=== PATIENT | male | born 1975 | race African-American/Black ===

== ENCOUNTER 2020-05-16 11:19 | Emergency (ER) | payer SELFPAY ==
[~2020-05-16] VITALS: Ht 175.3 cm; Wt 100.0 kg
[2020-05-16] MEDS ORDERED: KETOROLAC 60MG/2ML VIAL IM ONE (11:45)
[2020-05-16 13:27] VITALS: BP 123/76
== END 2020-05-16 13:28 | disposition home or self-care (01) ==
LOC: ER 11:42
DX: M54.5 Low back pain (principal); M79.604 Pain in right leg; R03.0 Elevated blood-pressure reading, without diagnosis of hypertension
CPT/HCPCS: 72100; 96372; 99283; J1885